=== PATIENT | male | born 1945 | race Caucasian/White ===

== ENCOUNTER 2022-08-19 13:45 | Inpatient (IN) | payer MEDICARE, OTHER ==
[~2022-08-19] VITALS: Ht 167.6 cm; Wt 73.5 kg
[2022-08-19 15:42] LABS: Basophils # (auto) 0.1 10 ^3/uL (0-0.2); Eosinophils # (auto) 0.5 10 ^3/uL (0-0.8); Mean Corpuscular Hemoglobin 36.3 pg (28.0-32.0); Monocytes # (auto) 0.9 10 ^3/uL (0-1.3)
[2022-08-19 15:44] LABS: Basophils % (auto) 0.6 % (0.0-2.0); Eosinophils % (auto) 4.7 % (0.0-7.0); Hematocrit 46.2 % (41.0-53.0); Lymphocytes % (auto) 20.1 % (10.0-50.0); Mean Corpuscular Hgb Conc. 34.8 g/dL (32.0-36.0); Mean Corpuscular Volume 104.3 fL (80.0-100.0); Monocytes % (auto) 8.5 % (0.0-12.0); Neutrophils # (auto) 6.6 10 ^3/uL (1.6-8.6); Neutrophils % (auto) 66.1 % (37.0-80.0); Nucleated Red Blood Cells % 0.2 %; Red Blood Cells 4.43 10^6/uL (4.5-5.90); Red Cell Distribution Width 13.3 % (11.8-14.3)
[2022-08-19 16:13] LABS: Albumin 3.5 g/dL (3.4-5.0); Anion Gap 5 (5-15); Blood Urea Nitrogen 24 mg/dL (7-18); Calcium 9.2 mg/dL (8.5-10.1); Carbon Dioxide 27 mmol/L (21-32); Chloride 110 mmol/L (98-107); Glucose 88 mg/dL (74-106); Potassium 4.2 mmol/L (3.5-5.1); Sodium 142 mmol/L (136-145)
[2022-08-19 16:18] LABS: Alanine Aminotransferase 26 U/L (16-61); Alkaline Phosphatase 94 U/L (45-117); Aspartate Aminotransferase 17 U/L (15-37); BUN/Creatinine Ratio 20.5 (10.0-20.0); Bilirubin, Total 0.6 mg/dL (0.2-1.0); Blood Alcohol < 3.0 mg/dL (0-5); GFR African American 78 mL/min; GFR Non-African American 65 mL/min; Total Protein 7.2 g/dL (6.4-8.2)
[2022-08-19] MEDS ORDERED: ACETAMINOPHEN 325 MG TAB PO PRN (21:15)
[2022-08-19] MEDS ORDERED: ONDANSETRON HCL 4 MG/2 ML VIAL IV PRN (21:15)
[2022-08-19] MEDS: TEMAZEPAM 15 MG CAP PO PRN (22:30)
[2022-08-20] MEDS ORDERED: HALOPERIDOL LACTATE 5 MG/ML INJ VIAL IM ONE ×2 (11:30→15:00)
[2022-08-20] MEDS ORDERED: HALOPERIDOL LACTATE 5 MG/ML INJ VIAL IM PRN (13:00)
[2022-08-20 14:59] LABS: Folate (Folic Acid) > 24.00 ng/mL (5.38-24)
[2022-08-20] MEDS ORDERED: LORazepam 2MG/ML-1ML VIAL IM ONE (15:00)
[2022-08-20] MEDS ORDERED: LORazepam 2MG/ML-1ML VIAL IV PRN (15:15)
[2022-08-20] MEDS: TEMAZEPAM 15 MG CAP PO PRN ×2 (19:52→20:34)
[2022-08-21 09:00] VITALS: BP 91/70
[2022-08-21] MEDS ORDERED: ATOR40TA52 PO (10:18)
[2022-08-21] MEDS ORDERED: QUET100T47 PO (10:18)
[2022-08-21] MEDS ORDERED: TRAZ50TA2 PO (10:18)
[2022-08-21] MEDS ORDERED: GABA100C9 PO (10:19)
[2022-08-21] MEDS ORDERED: BENA5TAB9 PO (10:19)
[2022-08-21] MEDS ORDERED: METF-370 PO (10:19)
[2022-08-21 13:00] VITALS: BP 118/78
[2022-08-21 17:00] VITALS: BP 136/63
[2022-08-21] MEDS: LORazepam 2MG/ML-1ML VIAL IM PRN (23:04)
[2022-08-22 08:00] VITALS: BP 110/56
[2022-08-22 12:00] VITALS: BP 136/76
[2022-08-22] MEDS: LORazepam 2MG/ML-1ML VIAL IM PRN (13:03)
== END 2022-08-22 17:50 | DRG 92 ==
LOC: ER 13:45 → OVERFLOW 21:26 → WEST WING 08-21 08:59
PROVIDERS: ADMIT Nurse Practitioner; ATTEND Internal Medicine
DX: G92.8 Other toxic encephalopathy (principal); F03.A11 Unspecified dementia, mild, with agitation; R62.7 Adult failure to thrive; I10 Essential (primary) hypertension; E78.5 Hyperlipidemia, unspecified; E11.40 Type 2 diabetes mellitus with diabetic neuropathy, unspecified; F43.10 Post-traumatic stress disorder, unspecified; Z68.26 Body mass index [BMI] 26.0-26.9, adult; I25.2 Old myocardial infarction; Z86.73 Personal history of transient ischemic attack (TIA), and cerebral infarction without residual deficits
CPT/HCPCS: 36415; 70450; 80053; 80320; 82607; 82746; 83036; 84443; 85025; G0378